=== PATIENT | male | born 1985 | race Caucasian/White ===

== ENCOUNTER 2016-08-10 08:03 | Emergency (ER) | payer OTHER ==
[2016-08-10] MEDS ORDERED: PREDNISONE 10 MG TAB ONE (08:37)
[2016-08-10] MEDS ORDERED: AZITHROMYCIN 250 MG TAB ONE (11:27)
== END 2016-08-10 09:35 | disposition home or self-care (01) ==
LOC: ER 08:03
DX: S93.401A Sprain of unspecified ligament of right ankle, initial encounter (principal); X50.1XXA Overexertion from prolonged static or awkward postures, initial encounter; Y93.02 Activity, running; Y92.009 Unspecified place in unspecified non-institutional (private) residence as the place of occurrence of the external cause; Z79.899 Other long term (current) drug therapy